=== PATIENT | male | born 1955 | race Caucasian/White ===

== ENCOUNTER 2018-02-02 16:12 | Emergency (ER) | payer OTHER, BC ==
[~2018-02-02] VITALS: Ht 193 cm; Wt 136.9 kg
[~2018-02-02 16:12] MED LIST: ADVIL200 M1 PO; ALEVE220 M2 PO; ALEVE220 MG PO; ALLEGRA ALLERG180 MG PO; ALLOPURINOL300 MG PO; BENADRYL25 MG PO; CELECOXIB200 MG PO; CENTRUM SILVER1 EAC3 PO; CIPRO500 MG PO; COQ10 PO; COUMADIN1 MG PO; Centrum Silver,Certa PO; ECOTRIN325 MG PO; Ecotrin PO; FERROUS SULFAT325 MG PO; IRON325 M1 PO; LIPITOR40 MG PO; MAGNESIUM CITR100 MG PO; Metamucil Packet PO; NASACORT10.8 ML BOTH NARES; NUCYNTA50 MG PO; OSTEO BI-FLEX1 EAC1 PO; OSTEO-BIFLE1 CAPSULE PO; OXYCODONE HCL5 MG PO; Percocet 5/325,Endoc PO; ROXICODONE5 MG PO; SENNA-TIME S T1 EACH PO; STOOL SOFTENER100 MG PO; TORADOL10 MG PO; TYLENOL EXTRA500 MG PO; UROXATRAL10 MG PO; XARELTO10 MG PO
[2018-02-02 18:42] VITALS: BP 149/97
== END 2018-02-02 18:43 | disposition home or self-care (01) ==
LOC: EME 16:12
DX: M25.462 Effusion, left knee (principal); S20.211A Contusion of right front wall of thorax, initial encounter; S80.02XA Contusion of left knee, initial encounter; V49.40XA Driver injured in collision with unspecified motor vehicles in traffic accident, initial encounter; Y92.410 Unspecified street and highway as the place of occurrence of the external cause; Z96.653 Presence of artificial knee joint, bilateral; E78.5 Hyperlipidemia, unspecified; I10 Essential (primary) hypertension; Z96.619 Presence of unspecified artificial shoulder joint
CPT/HCPCS: 71046; 73564; 99281; 99284